=== PATIENT | male | born 1960 | race Caucasian/White ===

== ENCOUNTER 2023-07-07 12:48 | Emergency (ER) | payer OTHER, SELFPAY ==
[2023-07-07 12:51] VITALS: BP 141/89
--- NOTE | 2023-07-07 15:31 | ED.GENMED ---
History of Present Illness
General
Chief Complaint: Male Genito-Urinary Symptoms
Source: patient and spouse
Exam Limitations: none
Time Seen by Provider: 07/07/23 15:10
Nursing documentation reviewed up to this point in time: agreed with
Travel History
Have you had any contact with someone who has COVID-19?: No
Do you have any symptoms of coronavirus? Fever > 100 degrees, chills, cough, shortness of breath, sore throat, loss of taste or smell, muscle aches, or headache?: No
History of Present Illness
History of Present Illness:
Patient to ED with complaint of headahce, dizziness, cough, slurred speech, weakness. States he was seen by PCP yesterday for UTI symptoms. Placed on Bactrim DS. Symptoms started after 3rd dose of bactrim, taken this AM. Slurred speech resolved
in waiting room. COntinues to complain of headache and feeling weak. Brought to ED by spouses for jeanna.
Past History
Past History
ED Past Medical History: CAD, HTN, Hypercholesterolemia, NIDDM, Hypothyroidism and Other (kidney stones)
ED Past Surgical History: Cardiac (stent), Orthopedic and Tonsilectomy
Social History
Tobacco: Non-smoker
Personal:
Living: with family
Employment: Employed
Family History
Family History: Negative Early CAD
Review of Systems
Review of Systems
Allergies reviewed?: Yes
All Other Systems: ROS reviewed and negative except as documented in HPI and ROS
Constitutional: Reports fatigue and chills
EENT: Reports no symptoms
Respiratory: Reports cough
Cardiac: Reports no symptoms
ABD/GI: Reports no symptoms
: Reports frequency and urgency
Musculoskeletal: Reports no symptoms
Skin: Reports no symptoms
Neurological: Reports dizzy, weakness and other (slurred speech)
Psychiatric: Reports no symptoms
Phy Exam
General Physical Exam
General Presentation: well appearing and no apparent distress
General age: appears stated age
General Skin: warm and dry
General Habitus: normal
General Mental: alert
General Hydration: appears well hydrated
Cardiovascular Exam
Cardiovascular Exam: regular rate/rhythm and no edema
Gastrointestinal Exam
Gastrointestinal Exam: normal bowel sounds, non tender, soft, no organomegaly, non distended and no cva tenderness
Neurological Exam
Neurological Exam: alert, oriented x3, CN II-XII intact, no motor deficits, no sensory deficits, speech normal and normal gait
NIH Stroke Score
Level of Consciousness: 0 - Alert
LOC questions: 0-Answers both correctly
LOC Commands: 0-Performs both correctly
Best Gaze: 0-Normal
Visual Pearl: 0=Normal, no visual loss
Facial palsy: 0=Normal, symmetrical
Motor - Right Arm: 0=No drift 10 seconds
Motor - Left Arm: 0=No drift 10 seconds
Motor - Right Le-No drift 5 seconds
Motor - Left Le-No drift 5 seconds
Limb Ataxia: 0-Absent
Sensation: 0-Normal
Best Language: 0-No aphasia
Dysarthria: 0-Normal
Extinction and Inattention: 0-No abnormality
Total Score:: 0
Mental
Mental Status: oriented to person, oriented to place, oriented to time and usual mental status
Describe Speech: normal speech
Cranial
Cranial Nerves: normal, intact gag reflex and no facial asymetry
EOM (CN3/4/6): intact
Motor
Seizure Activity: none
Gait: normal
Tremors: none
Right upper extremity: 4
Right lower extremity: 4
Left upper extremity: 4
Left lower extremity: 4
Bilateral upper extremities: 4
Bilateral lower extremities: 4
Sensory
Sensory Exam: intact
Cerebellar
Cerebellar Function: normal finger to nose and normal Romberg test
Musculoskeletal Exam
Musculoskeletal Exam: full ROM and neuro vasc intact
Skin Exam
Skin Exam: normal color, warm/dry and no rash
Psychiatric Exam
Psychiatric Exam: normal mood/affect
Course
Orders/Labs/Results
Orders:
Orders
07/07/23 15:29
Electrocardiogram (*1) Urgent
Reason for Study: Fatigue / Weakness
CT Head W/o Iv Contrast Urgent
Comment:
Reason For Exam: dizziness, slurred speech
EKG- Treatment ONCE
CR Chest - 2 Views Urgent
Comment:
Reason For Exam: cough
07/07/23 15:46
COVID-19 Antigen Urgent
Source: Nasal Swab
Complete Blood Count/With Diff Urgent
Comprehensive Metabolic Panel Urgent
Troponin I Urgent
Influenza A+B Rapid Molecular Urgent
PER Source: Nasal Swab
Specimen Description:
07/07/23 16:29
Urinalysis Reflex To Culture Urgent
Date Specimen was Collected: 07/07/23
Time Specimen was Collected: 16:28
Urine Microscopic Reflex Cult Urgent
07/07/23 17:05
Amoxicillin 875 mg/Clav 125 mg [Augmentin 875 mg/125 mg] 1 tablet PO NOW STA
Abnormal Lab Results
07/07/23 07/07/23
15:46 16:29
Absolute Neuts (auto) 8.7 H 10^3/uL
(1.4-6.5)
Absolute Lymphs (auto) 1.1 L 10^3/uL
(1.2-3.4)
Absolute Monos (auto) 0.8 H 10^3/uL
(0.1-0.6)
Neutrophils % 81.3 H %
(42.2-75.2)
Lymphocytes % 10.4 L %
(20.5-51.1)
Sodium 132 L mmol/L
(135-145)
Carbon Dioxide 20 L mmol/L
(22-30)
Glucose 249 H mg/dl
(70-99)
Urine Ketones 1+ A
(Negative)
Leukocyte Esterase Rfl Trace A
(Negative)
Urine Glucose 3+ A
(Negative)
07/07/23 15:46
07/07/23 15:46
Vital Signs
Initial and Last Documented VS:
Initial Vital Signs
Temp Pulse Resp BP Pulse Ox
98.9 F 84 18 141/89 94
07/07/23 12:51 07/07/23 12:51 07/07/23 12:51 07/07/23 12:51 07/07/23 12:51
Last Documented Vital Signs
Temp Pulse Resp BP Pulse Ox
98.9 F 88 18 127/87 94
07/07/23 12:51 07/07/23 17:26 07/07/23 12:51 07/07/23 17:26 07/07/23 12:51
*Radiology
Radiology exam reviewed: radiology read reviewed
*Pulse Oximetry
Patient hypoxic: no
*Critical Care Note
Total Time (30-74mins, 75-104mins- exclusive of procedures): Not Applicable
Update Note
Update Note:
Patient placed on Bactrim DS for UTI. Has had 3 doses. After taking dose this AM he began to feel dizzy, weak, developed cough, off balance. Brought to ED by spouse. Symptoms had resolved prior to ED evaluation. States he is symptom free. Head
CT, labs reviewed. WIll recommend stopping Bactrim, placed on AUgmentin. WIll discharge home. He agrees to return to ED immediately for return of any of his symptoms.
ED Attending Note
-
Portions of this chart may have been created with voice recognition software.� Occasional wrong word or��sound alike� substitutions may have occurred due to the inherent limitations of voice recognition software.
Discharge Plan
Departure
Patient Disposition: Home (Routine Discharge)
Date of Disposition: 07/07/23
Time of Disposition: 17:06
Patient with high blood pressure during this ER visit?: No
Condition: Good
Covid-19: Not Applicable
Discharge Problem:
Adverse drug reaction
Instructions: Adverse Drug Reactions, Adult ED
Prescriptions:
New
amoxicillin-pot clavulanate 875-125 mg tablet
1 tab PO BID Qty: 13 0RF
No Action
metformin 500 MG tablet
1,000 mg PO BID
aspirin 81 MG tablet,delayed release (DR/EC)
81 mg PO HS
metoprolol tartrate 25 MG tablet
25 mg PO BID
levothyroxine [Synthroid] 300 MCG tablet
300 mcg PO MOTUTHFRSA
Patient Comments:
pt request and need brand specific,
nitroglycerin [Nitrostat] 0.4 MG tablet, sublingual
0.4 mg sublingual PRN PRN (Reason: cp ) Qty: 60 2RF
lisinopril 10 MG tablet
10 mg PO DAILY
lansoprazole [Prevacid] 30 MG capsule,delayed release(DR/EC)
30 mg PO DAILY
tamsulosin 0.4 MG capsule
0.4 mg PO DAILY Qty: 8 0RF
oxycodone 5 MG tablet
5 mg PO Q4HPRN PRN (Reason: pain) Qty: 8 0RF
Referrals:
Madhav Puri, DO [Family Provider] - Tomorrow
Activity Restrictions/Additional Instructions:
Stop the Bactrim DS. Return to the emergency department IMMEDIATELY for return of your sympmtoms
Interventions
Interventions:
*Risk Screen - Suicide Last Done: 07/07/23 12:51
*General Assessment Last Done: 07/07/23 15:53
*Neglect/Abuse Screening Last Done: 07/07/23 12:51
*ED COVID-19 Vaccine History Last Done: 07/07/23 12:51
*Nursing Disposition Last Done: 07/07/23 17:25
ED-Male Genitourinary Assessment Last Done: 07/07/23 15:53
Discharge Date and Time
Discharge Date/Time: 07/07/23 17:26
[2023-07-07 15:39] VITALS: BP 121/71
[2023-07-07 16:14] LABS: % Basophils 0.4 % (0-2); % Eosinophils 0.4 % (0-6); % Immature Granulocytes 0.4 % (0-0.5); % Lymphocytes 10.4 % (20.5-51.1); % Monocytes 7.1 % (1.7-9.3); % Neutrophils 81.3 % (42.2-75.2); Absolute Lymphocytes 1.1 10^3/uL (1.2-3.4); Absolute Monocytes 0.8 10^3/uL (0.1-0.6); Absolute Neutrophils 8.7 10^3/uL (1.4-6.5); Hematocrit 42.8 % (39.0-52.0); Hemoglobin 15.4 g/dL (13.0-18.0); Mean Corpuscular Hgb 30.1 pg (27.0-31.0); Mean Corpuscular Volume 83.6 fL (80.0-94.0); Mean Platelet Volume 9.1 fL (7.4-10.4); Nucleated Red Blood Cells % 0 % (-); Platelet Count 196 10^3/uL (130-400); Red Blood Cell Count 5.12 10^6/uL (4.70-6.10); White Blood Cell Count 10.6 10^3/uL (4.8-10.8)
[2023-07-07 16:28] LABS: Troponin I < 0.012 ng/ml
[2023-07-07 16:32] LABS: ALT (SGPT) 32 U/L (0-50); AST (SGOT) 28 U/L (17-59); Alkaline Phosphatase 67 U/L (38-126); Blood Urea Nitrogen 18 mg/dl (9-20); Calcium 9.6 mg/dl (8.4-10.2); Carbon Dioxide 20 mmol/L (22-30); Chloride 98 mmol/L (98-107); Glucose 249 mg/dl (70-99); Potassium 4.4 mmol/L (3.5-5.1); Sodium 132 mmol/L (135-145); Total Bilirubin 1.3 mg/dl (0.2-1.3); Total Protein 6.8 g/dl (6.3-8.2); eGFR > 60.00
[2023-07-07 16:36] LABS: COVID-19 Antigen Negative (Negative)
[2023-07-07 16:40] LABS: Urine Albumin Trace (Neg - Trace); Urine Bilirubin Negative (Negative); Urine Character Clear (Clear); Urine Color Yellow; Urine Glucose 3+ (Negative); Urine Ketone 1+ (Negative); Urine Leukocyte Trace (Negative); Urine Nitrite Negative (Negative); Urine Occult Blood Negative (Negative); Urine Specific Gravity 1.025 (<1.030); Urine Urobilinogen Negative (Neg - 1+)
[2023-07-07 16:49] LABS: Urine Red Blood Cell None Seen /HPF (0-2); Urine White Cell 0-2 /HPF (0-5)
[2023-07-07] MEDS: AUGMENTIN 875 MG/125 MG 1 TABLET PO (17:16)
[2023-07-07 17:25] VITALS: BP 127/87
[2023-07-07 17:26] VITALS: BP 127/87
== END 2023-07-07 17:26 | disposition home or self-care (01) ==
LOC: EMR 12:48
PROVIDERS: Nurse Practitioner; EMERGENCY PHYSICIAN Emergency Medicine; FAMILY PHYSICIAN Family Medicine
DX: R51.9 Headache, unspecified (principal); R42 Dizziness and giddiness; R53.1 Weakness; T36.8X5A Adverse effect of other systemic antibiotics, initial encounter; Z11.52 Encounter for screening for COVID-19
CPT/HCPCS: 99285; 70450; 71046; 80053; 81003; 81015; 84484; 85025; 87502; 87811; 93005

== ENCOUNTER → 2025-03-08 09:25 | Outpatient (REF) | payer MEDICARE, OTHER, SELFPAY ==
--- NOTE | 2025-03-08 10:41 | CARDSERVDEF ---
Echocardiogram with Definity completed after protocol screening completed. Allergies verified.
Patent IV site: Right antecubital 22 G PC
IV site flushed with 0.9% NaCl pre and post administration.
Diluted bolus method utilized to enhance visualization of ventricular garrett.
Total volume given: ___3_ mL
Patient tolerated all procedures well without complications.
Heplock D/C ed at 1035, site clear, no redness, no edema. Pressure held, no bleeding,2x2 applied and taped. Pt offers no complaints.
== END ==
LOC: RCS 09:25
PROVIDERS: ATTENDING PHYSICIAN Internal Medicine; FAMILY PHYSICIAN Family Medicine
DX: I25.10 Atherosclerotic heart disease of native coronary artery without angina pectoris (principal); I10 Essential (primary) hypertension; I45.10 Unspecified right bundle-branch block
CPT/HCPCS: 93307; Q9957